=== PATIENT | male | born 1935 | race Caucasian/White ===

== ENCOUNTER 2017-10-19 08:33 | Outpatient (CLI) | payer MEDICARE, BC ==
[2017-10-19 09:20] LABS: CHOL/HDL RATIO 3.3 (<5.0); CHOLESTEROL 177 mg/dL; HDL CHOLESTEROL 53 mg/dL; LDL CHOLESTEROL,CALCULATED 113 mg/dL; LDL/HDL RATIO 2.1 (<3.6); VLDL CHOLESTEROL 11 mg/dL
== END 2017-10-19 08:34 | disposition home or self-care (01) ==
LOC: LAB 08:33
PROVIDERS: ATTEND Internal Medicine
DX: E78.00 Pure hypercholesterolemia, unspecified (principal)
CPT/HCPCS: 36415; 80061

== ENCOUNTER 2017-10-23 10:31 | Outpatient (CLI) | payer MEDICARE, BC ==
--- NOTE | 2017-10-28 16:21 | Ultrasound Report ---
DATE OF SERVICE: 10/23/2017 RIGHT LEG ARTERIAL DUPLEX: 10/23/2017 CLINICAL INDICATION: Pain in the right groin. TECHNIQUE: Real-time sonographic vascular imaging was performed by the hardwood floor finisher through the right lower extremity utilizing both color-flow and Doppler spectral analysis. Multiple contact center representative static images were saved for review. RIGHT SIDE SITE PSV WAVEFORM STEN PATIENT SUPPORT SPECIALIST 91 triphase PSFA 84 triphase MSFA 75 triphase DSFA 83 triphase PFA 68 triphase POP 40 triphase JANETT 59 triphase RADIOACTIVE WASTE DISPOSAL DISPATCHER 50 triphase PER 60 triphase DPA 61 triphase FINDINGS: Waveforms are triphasic. There is no evidence of a focal hemodynamically significant stenosis in the right leg. No pseudoaneurysm or arteriovenous fistula is appreciated. Irregularly irregular heart rhythm is incidentally noted, compatible with atrial fibrillation. IMPRESSION: NORMAL RIGHT LEG ARTERIAL DUPLEX. NO EVIDENCE OF PSEUDOANEURYSM OR ARTERIOVENOUS FISTULA FORMATION. TD: 10/23/2017 13:02 MTDHeidi
== END 2017-10-23 10:32 | disposition home or self-care (01) ==
LOC: DI 10:31
PROVIDERS: ATTEND Internal Medicine
DX: R10.31 Right lower quadrant pain (principal)

== ENCOUNTER 2017-12-21 09:34 | Outpatient (CLI) | payer MEDICARE, BC ==
[2017-12-21 10:23] LABS: CHOL/HDL RATIO 2.8 (<5.0); CHOLESTEROL 175 mg/dL; HDL CHOLESTEROL 62 mg/dL
[2017-12-21 10:47] LABS: LDL CHOLESTEROL,DIRECT 104 mg/dL; LDLD/HDL RATIO 1.7 (<3.6)
== END 2017-12-21 09:35 | disposition home or self-care (01) ==
LOC: LAB 09:34
PROVIDERS: ATTEND Internal Medicine
DX: E78.00 Pure hypercholesterolemia, unspecified (principal)
CPT/HCPCS: 36415; 80061; 83721

== ENCOUNTER 2022-06-20 12:28 | Outpatient (CLI) | payer MEDICARE, BC ==
[2022-06-20 18:40] LABS: BASOPHILS % (AUTO) 0.6 %; EOSINOPHILS % (AUTO) 0.6 %; HCT - HEMATOCRIT 41.6 % (42.0-52.0); HGB - HEMOGLOBIN 13.7 g/dL (14.0-18.0); LYMPHOCYTES # (AUTO) 0.9 10^3/uL (1.5-3.5); LYMPHOCYTES % (AUTO) 28.7 %; MEAN CORPUSCULAR HEMOGLOBIN 30.2 pg (27.0-31.0); MEAN CORPUSCULAR HGB CONC 32.9 g/dL (32.0-36.0); MEAN CORPUSCULAR VOLUME 91.6 fL (80.0-94.0); MEAN PLATELET VOLUME 11.1 fL (7.4-11.4); MONOCYTES # (AUTO) 0.3 10^3/uL (0.0-1.0); MONOCYTES % (AUTO) 9.2 %; NEUTROPHILS % (AUTO) 60.9 %; PLT - PLATELET COUNT 185 10^3/uL (130-450); RED BLOOD COUNT 4.54 10^6/uL (4.70-6.10); RED CELL DISTRIBUTION WIDTH 13.4 % (12.0-15.0); WHITE BLOOD COUNT 3.3 x10^3/uL (4.8-10.8)
[2022-06-20 19:05] LABS: ALBUMIN 4.3 g/dL (3.2-5.5); ALBUMIN/GLOBULIN RATIO 1.9 (1.0-2.2); BILIRUBIN,TOTAL 0.8 mg/dL (0.2-1.0); CALCIUM 9.5 mg/dL (8.5-10.3); CREATININE 0.8 mg/dL (0.6-1.2); POTASSIUM 4.2 mmol/L (3.5-5.0); TOTAL PROTEIN 6.6 g/dL (6.7-8.2)
== END 2022-06-20 23:59 | disposition home or self-care (01) ==
LOC: LAB.N 12:28
PROVIDERS: ATTEND Family Medicine
DX: R31.9 Hematuria, unspecified (principal)
CPT/HCPCS: 36415; 80053; 85025

== ENCOUNTER 2022-06-26 11:55 | Outpatient (CLI) | payer MEDICARE, BC ==
--- NOTE | 2022-06-26 16:32 | CT Report ---
PROCEDURE: Abdomen/Pelvis WO INDICATIONS: HEMATURIA TECHNIQUE: Noncontrast 5 mm thick sections acquired from the diaphragms to the symphysis. 5 mm coronal and sagi ttal reformats were then performed. For radiation dose reduction, the following was used: automated exposure control, adjustment of mA and/or kV according to patient size. COMPARISON: None. FINDINGS: Image quality: Excellent. ABDOMEN: Lung bases: Lung bases are clear. Heart size is normal. Solid organs: Liver and spleen are normal in size. Gallbladder is within normal limits. Pancreas i s normal in contours. Left adrenal thickening is seen. No discrete adrenal nodules. Kidneys are normal in size, without hydronephrosis or nephrolithiasis. 2.3 x 2.6 cm exophytic cyst in lateral cortex of mid pole right kidney is seen. No perinephric fat stranding or fluid. No hydrouret er. Peritoneum and bowel: Unenhanced bowel loops demonstrate normal wall thickness and caliber. No free fluid or air. Mild fecal stasis in the colon is seen. Colonic diverticulosis is noted without colon ic wall thickening or pericolonic fat stranding. Nodes and vessels: No retroperitoneal or mesenteric adenopathy by size criteria. Aorta and inferior vena cava are normal in caliber. Miscellaneous: No ventral hernias. PELVIS: Genitourinary: Enlarged prostate gland with mass effect on floor of urinary bladder is seen. Bladder wall thickness is normal. No discrete bladder wall mass. Miscellaneous: Borderline prominent right inguinal lymph node measures 1 cm in short axis diameter is seen series 3 image 108. No inguinal hernia. Bones: No suspicious bony lesions. No vertebral body compression fractures. 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 Moderate left hip joint osteoarthritic changes also seen. Degenerat alejandro disc disease is noted throughout lumbar spine. IMPRESSION: 1. No renal stones or hydronephrosis. No hydroureter. Right renal cyst as above. 2. No gross bladder wall abnormality. Enlarged prostate gland with mass effect on floor of urinary bl adder. 3. No bowel obstruction or abnormal bowel wall thickening. Mild constipation. Colonic diverticulosis without evidence of acute diverticulitis. 4. Left adrenal thickening, no definite adrenal nodule is seen. 5. Nonspecific borderline-enlarged right endolymph no. No other abdominal or pelvic lymphadenopathy i s seen. 6. Asymmetric severe right hip joint osteoarthritis. No acute fracture or dislocation. Reviewed by: Riccardo Sanches MD on 06/26/2022 4:30 PM PDT Approved by: Riccardo Sanches MD on 06/26/2022 4:30 PM PDT Station ID: [id number]
== END 2022-06-26 11:56 | disposition home or self-care (01) ==
LOC: DI 11:55
PROVIDERS: ATTEND Family Medicine
DX: N28.1 Cyst of kidney, acquired (principal); N40.0 Benign prostatic hyperplasia without lower urinary tract symptoms; R59.0 Localized enlarged lymph nodes; M16.11 Unilateral primary osteoarthritis, right hip; R31.9 Hematuria, unspecified

== ENCOUNTER 2023-03-02 15:21 | Emergency (ER) | payer MEDICARE, BC ==
--- NOTE | 2023-03-02 16:50 | Ultrasound Report ---
PROCEDURE: Duplex Ext Veins Left INDICATIONS: swelling for 2 weeks TECHNIQUE: Real-time imaging, as well as color and pulse Doppler interrogation, were performed of the lower extr emity deep veins from the inguinal ligament to the popliteal fossa. COMPARISON: None. FINDINGS: The deep veins are normally compressible, and free of intraluminal thrombus. Color and pu lse Doppler demonstrate normal phasic intraluminal flow. There is normal augmentation response to di stal compression maneuver. IMPRESSION: No evidence of acute DVT, left lower extremity. Reviewed by: Jonathan Dyer MD on 03/02/2023 4:49 PM PDT Approved by: Jonathan Dyer MD on 03/02/2023 4:49 PM PDT Station ID: [id number]
[2023-03-02 17:20] VITALS: BP 144/89
--- NOTE | 2023-03-02 17:24 | ED Physician Documentation ---
PD HPI LOWER EXT INJURY - Stated complaint Stated Complaint: LT LEG SWELL - Chief complaint Chief Complaint: Ext Problem - History obtained from History obtained from: Patient - Additional information Additional information: He got a new pair of boots about 2 weeks ago. There was a redundant flap of fabric in the left boot and he worked for 2 days and then developed a sore on the left ankle. Since then has had persistent swelling of that ankle. It is mildly painful. He was sent here from the walk-in clinic to rule out DVT. PD PAST MEDICAL HISTORY - Past Medical History Cardiovascular: Coronary artery disease, [place] Respiratory: None Endocrine/Autoimmune: None GI: None : None HEENT: None Psych: None Musculoskeletal: None Derm: None - Past Surgical History Past Surgical History: No Cardiovascular: Coronary stent, Angioplasty - Present Medications Home Medications: Ambulatory Orders Medication Instructions Recorded Confirmed Metoprolol Succinate 12.5 mg PO DAILY 11/08/15 07/16/16 Clopidogrel [Plavix] 75 mg PO ONCE 11/09/15 07/16/16 cephALEXin [Keflex] 500 mg PO Q6H #28 cap 03/02/23 - Allergies Allergies/Adverse Reactions: Allergies Allergy/AdvReac Type Severity Reaction Status Date / Time procaine HCl * Allergy Unknown Verified 07/16/16 22:45 [From Novocain] - Social History Does the pt smoke?: No Smoking Status: Never smoker Does the pt drink ETOH?: No Does the pt have substance abuse?: No - Immunizations Immunizations are current?: Yes Immunizations: TDAP >10years/unknown - POLST Patient has POLST: No PD ED PE NORMAL - Vitals Vital signs reviewed: Yes - General General: Alert and oriented X 3, No acute distress - Cardiac Cardiac: RRR - Respiratory Respiratory: No respiratory distress, Clear bilaterally - Extremities Extremities: Other (There is a small sore measuring only about 2 mm around on the lateral left ankle with mild surrounding redness and swelling. He has pitting edema, 2+ from the mid calf down. The right leg appears normal.) - Neuro Neuro: Alert and oriented X 3, Normal speech Results - Vitals Vitals: Vital Signs - 24 hr 03/02/23 03/02/23 15:25 17:18 Temperature 36.5 C Heart Rate 51 L 82 Respiratory 16 16 Rate Blood Pressure 132/81 H 144/89 H O2 Saturation 100 99 Oxygen O2 Source Room air - Rads (name of study) DVT ultrasound was reportedly negative. Relevant Findings:: Final report received PD Medical Decision Making - ED course ED course: Seems like a mild case of cellulitis related to his sore he has on his ankle from the boot. He is started on Keflex. Departure - Departure Disposition: Home, Self Care Clinical Impression: Cellulitis Qualifiers: Site of cellulitis: extremity Site of cellulitis of extremity: lower extremity Laterality: left Qualified Code(s): L03.116 - Cellulitis of left lower limb Condition: Good Record reviewed to determine appropriate education?: Yes Instructions: Cellulitis Dc Prescriptions: cephALEXin [Keflex] 500 mg PO Q6H #28 cap Comments: [facility] in [place]. Start t hem tonight. Return for new or worsening symptoms. Follow-up with your primary care physician, next available appointment. Elevate is much as possible.
== END 2023-03-02 17:28 | disposition home or self-care (01) ==
LOC: ED 15:21
DX: L03.116 Cellulitis of left lower limb (principal); I25.2 Old myocardial infarction; Z95.5 Presence of coronary angioplasty implant and graft
CPT/HCPCS: 99283; 99284

== ENCOUNTER 2023-07-28 15:47 | Emergency (ER) | payer MEDICARE, BC ==
[2023-07-28 16:02] VITALS: BP 125/74; O2SAT 99
--- NOTE | 2023-07-28 16:32 | XRAY Report ---
PROCEDURE: Ribs w/PA Chest RT INDICATIONS: Fall, limited ROM, pain TECHNIQUE: 2 views of the right ribs were acquired, along with a single view chest. COMPARISON: None. FINDINGS: Surgical changes and devices: None. Bones and chest wall: No fractures or dislocations. No suspicious bony lesions. Overlying soft tis sues appear unremarkable. Lungs and pleura: No pleural effusions or pneumothorax. Lungs appear clear. Mediastinum: Mediastinal contours appear normal. Heart size is normal. IMPRESSION: No displaced rib fracture or pneumothorax. Reviewed by: Riccardo Sanches MD on 07/28/2023 4:31 PM PDT Approved by: Riccardo Sanches MD on 07/28/2023 4:31 PM PDT Station ID: [id number]
--- NOTE | 2023-07-28 16:33 | XRAY Report ---
PROCEDURE: Clavicle RT INDICATIONS: Fall, pain with ROM TECHNIQUE: 2 views of the clavicle were acquired. COMPARISON: None. FINDINGS: Bones: No fractures or dislocations. Moderate to severe acromioclavicular joint and glenohumeral oneyda nt osteoarthritic changes are seen. No suspicious bony lesions. Soft tissues: No suspicious soft tissue calcifications or masses. IMPRESSION: No acute right clavicular fracture. 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 Reviewed by: Riccardo Sanches MD on 07/28/2023 4:32 PM PDT Approved by: Riccardo Sanches MD on 07/28/2023 4:32 PM PDT Station ID: [id number]
--- NOTE | 2023-07-28 17:52 | ED Physician Documentation ---
PD HPI MAJOR TRAUMA - Stated complaint Stated Complaint: FALL - Chief complaint Chief Complaint: Trauma Ch/Bk - History obtained from History obtained from: Patient - Additional information Additional information: Mechanical trip and fall hitting the back of a kitchen chair 2 weeks ago with persistent pain in the upper anterior right ribs and clavicle area. Worse last night while coughing. PD PAST MEDICAL HISTORY - Past Medical History Cardiovascular: Coronary artery disease, [place] Respiratory: None Endocrine/Autoimmune: None GI: None : None HEENT: None Psych: None Musculoskeletal: None Derm: None - Past Surgical History Past Surgical History: No Cardiovascular: Coronary stent, Angioplasty - Present Medications Home Medications: Ambulatory Orders Medication Instructions Recorded Confirmed Finasteride [Proscar] 5 mg PO DAILY 07/28/23 07/28/23 Metoprolol Succinate [Toprol Xl] 12.5 mg PO DAILY 07/28/23 07/28/23 Tamsulosin [Flomax] 0.4 mg PO DAILY 07/28/23 07/28/23 - Allergies Allergies/Adverse Reactions: Allergies Allergy/AdvReac Type Severity Reaction Status Date / Time procaine HCl * Allergy Unknown Verified 07/28/23 15:56 [From Novocain] - Social History Does the pt smoke?: No Smoking Status: Never smoker Does the pt drink ETOH?: No Does the pt have substance abuse?: No - Immunizations Immunizations are current?: Yes Immunizations: TDAP >10years/unknown - POLST Patient has POLST: No PD ED PE NORMAL - General General: Alert and oriented X 3, No acute distress - HEENT HEENT: PERRL, EOMI - Neck Neck: Supple, no meningeal sign, No bony TTP - Cardiac Cardiac: RRR, No murmur, Other (Mild tenderness of the proximal right clavicle and costochondral joints high up to the right chest wall. No bruising.) - Respiratory Respiratory: No respiratory distress, Clear bilaterally - Neuro Neuro: Alert and oriented X 3, Normal speech - Psych Psych: Normal mood, Normal affect Results - Vitals Vitals: Vital Signs - 24 hr 07/28/23 15:51 Temperature 36 C L Heart Rate 60 Respiratory 16 Rate Blood Pressure 125/74 O2 Saturation 99 Oxygen O2 Source Room air - Rads (name of study) X-rays right ribs and clavicle are negative for fracture. Relevant Findings:: Final report received, EMP independent interpretation of test PD Medical Decision Making - ED course ED course: 87-year-old gentleman with chest wall contusion, negative x-rays. Declined pain medication. Discussed expected course of healing and follow-up. Departure - Departure Disposition: 01 Home, Self Care Clinical Impression: Contusion of chest wall Qualifiers: Encounter type: initial encounter Laterality: right Qualified Code(s): S20.211A - Contusion of right front wall of thorax, initial encounter Condition: Good Record reviewed to determine appropriate education?: Yes Instructions: ED Contusion Rib Comments: Tylenol per package instructions for pain, you can also continue the conservative measures you have been doing. Return if worse. Expected will hurt for a while longer but recommend you follow-up with your primary care physician in 2 weeks if not slowly improving at least. Forms: PCP List Discharge Date/Time: 07/28/23 17:59
== END 2023-07-28 17:59 | disposition home or self-care (01) ==
LOC: ED 15:47
DX: S20.211A Contusion of right front wall of thorax, initial encounter (principal); W01.190A Fall on same level from slipping, tripping and stumbling with subsequent striking against furniture, initial encounter; Y92.000 Kitchen of unspecified non-institutional (private) residence as the place of occurrence of the external cause
CPT/HCPCS: 99283

== ENCOUNTER 2023-12-20 12:50 | Emergency (ER) | payer MEDICARE, BC ==
--- NOTE | 2023-12-20 16:54 | ED Physician Documentation ---
History of Present Illness - Stated complaint Stated Complaint: LEG/HIP PX - Chief complaint Chief Complaint: Ext Problem - History obtained from History obtained from: Patient, Family - Additonal information Additional information: 88-year-old gentleman with history of prostatic hypertrophy, and coronary disease with stenting presents with daughter. He spent 4 months in the [facility]. He states that for the last 3 years or so he has had progressive weakness and it was particular bad when he got off the plane a few nights ago. While in the [facility] he had several falls injuring the left shoulder, both hips, and ribs. When queried if his primary care physician knows about the progressive weakness he responds no but he does have an appointment this week with him. PD PAST MEDICAL HISTORY - Past Medical History Cardiovascular: Coronary artery disease, [place] Respiratory: None Endocrine/Autoimmune: None GI: None : None HEENT: None Psych: None Musculoskeletal: None Derm: None - Past Surgical History Past Surgical History: No Cardiovascular: Coronary stent, Angioplasty - Present Medications Home Medications: Ambulatory Orders Medication Instructions Recorded Confirmed Finasteride [Proscar] 5 mg PO DAILY 07/28/23 12/20/23 Metoprolol Succinate [Toprol Xl] 12.5 mg PO DAILY 07/28/23 12/20/23 Tamsulosin [Flomax] 0.4 mg PO DAILY 07/28/23 12/20/23 predniSONE [Deltasone] 20 mg PO DAILY #7 tab 12/20/23 - Allergies Allergies/Adverse Reactions: Allergies Allergy/AdvReac Type Severity Reaction Status Date / Time procaine HCl * Allergy Unknown Verified 07/28/23 15:56 [From Novocain] - Social History Does the pt smoke?: No Smoking Status: Never smoker Does the pt drink ETOH?: No Does the pt have substance abuse?: No - Immunizations Immunizations are current?: Yes Immunizations: TDAP >10years/unknown - POLST Patient has POLST: No PD ED PE NORMAL - Vitals Vital signs reviewed: Yes - General General: Alert and oriented X 3, No acute distress - HEENT HEENT: PERRL, EOMI - Neck Neck: Supple, no meningeal sign, No bony TTP - Cardiac Cardiac: RRR, No murmur - Respiratory Respiratory: No respiratory distress, Clear bilaterally - Abdomen Abdomen: Non tender - Derm Derm: Normal color, Warm and dry - Extremities Extremities: Other (Tender over the left shoulder with limited range of motion but no deformity. Also some tenderness of the left ribs and sternum. Both hips are mildly tender laterally but with painless external and internal rotation. He has good muscle mass.) - Neuro Neuro: Alert and oriented X 3, Normal speech Eye Opening: Spontaneous Motor: Obeys Commands Verbal: Oriented GCS Score: 15 Results - Vitals Vitals: Vital Signs - 24 hr 12/20/23 12/20/23 12/20/23 12:57 13:30 17:04 Temperature 36.0 C L Heart Rate 82 68 63 Respiratory 16 16 16 Rate Blood Pressure 104/64 128/82 H 132/62 H O2 Saturation 100 100 100 12/20/23 19:24 Temperature Heart Rate 82 Respiratory 16 Rate Blood Pressure 132/82 H O2 Saturation 98 Oxygen O2 Source Room air - Labs Labs: Laboratory Tests 12/20/23 12/20/23 12/20/23 17:00 17:00 17:00 WBC 5.2 RBC 3.89 L Hgb 10.8 L Hct 34.0 L MCV 87.4 MCH 27.8 MCHC 31.8 L RDW 16.4 H Plt Count 242 MPV 9.1 Neut # (Auto) 3.8 Lymph # (Auto) 0.9 L [place] # (Auto) 0.4 Eos # (Auto) 0.1 Baso # (Auto) 0.0 Absolute Nucleated RBC 0.00 Nucleated RBC % 0.0 ESR 45 H Sodium 136 Potassium 4.3 Chloride 103 Carbon Dioxide 27 Anion Gap 6.0 BUN 20 Creatinine 0.5 L Estimated GFR (MDRD) 158 Glucose 95 Calcium 9.1 Total Bilirubin 0.5 AST 26 ALT 14 Alkaline Phosphatase 403 H C-Reactive Protein Total Protein 6.9 Albumin 3.5 Globulin 3.4 Albumin/Globulin Ratio 1.0 Total PSA Urine Color Urine Clarity Urine pH Ur Specific Petty Urine Protein Urine Glucose (UA) Urine Ketones Urine Occult Blood Urine Nitrite Urine Bilirubin Urine Urobilinogen Ur Leukocyte Esterase Ur Microscopic Review Urine Culture Comments 12/20/23 12/20/23 12/20/23 17:00 18:01 18:25 WBC RBC Hgb Hct MCV MCH MCHC RDW Plt Count MPV Neut # (Auto) Lymph # (Auto) [place] # (Auto) Eos # (Auto) Baso # (Auto) Absolute Nucleated RBC Nucleated RBC % ESR Sodium Potassium Chloride Carbon Dioxide Anion Gap BUN Creatinine Estimated GFR (MDRD) Glucose Calcium Total Bilirubin AST ALT Alkaline Phosphatase C-Reactive Protein 12.0 H Total Protein Albumin Globulin Albumin/Globulin Ratio Total PSA 814.511 H Urine Color YELLOW Urine Clarity CLEAR Urine pH 5.5 Ur Specific Petty >=1.030 H Urine Protein NEGATIVE Urine Glucose (UA) NEGATIVE Urine Ketones NEGATIVE Urine Occult Blood NEGATIVE Urine Nitrite NEGATIVE Urine Bilirubin NEGATIVE Urine Urobilinogen 1 (NORMAL) Ur Leukocyte Esterase NEGATIVE Ur Microscopic Review NOT INDICATED Urine Culture Comments NOT INDICATED - Rads (name of study) Xrays" Relevant Findings:: Final report received, EMP independent interpretation of test (X-rays of the left shoulder demonstrate degenerative change, x-rays of the left ribs and chest were unremarkable. Bilateral hip x-rays show severe right and moderate left hip degenerative change.) PD Medical Decision Making - ED course ED course: He presents with ongoing joint pains that were much worse after a flight the other day. This is concerning for PMR and he is ESR and CRP are elevated so we will start steroids. He also has a lot of prostate symptoms but with a negative postvoid residual and negative urine here. His alkaline phosphatase was up which is worrisome for metastatic disease to the bones although I do not see any evidence of this on the current x-rays. His PSA is pending on discharge and He understandsthe need to follow-up with his PCP for consideration of this. He has an appointment on Thursday. Departure - Departure Disposition: Home, Self Care Clinical Impression: Weakness, Right hip pain, Left hip pain, Elevated erythrocyte sedimentation rate, Left shoulder pain, Frequent falls Condition: Good Record reviewed to determine appropriate education?: Yes Instructions: Understanding Polymyalgia Rheumatica, Treatment for Polymyalgia Rheumatica, ED Degenerative Joint Disease Prescriptions: predniSONE [Deltasone] 20 mg PO DAILY #7 tab Comments: You were seen today for diffuse joint aches, we did x-rays of the left shoulder, both hips, and ribs. The x-rays of the shoulder and ribs showed a lot of arthritis especially in the right hip. We still do not see anything wrong with your ribs per se. You do have elevated inflammatory markers and given your history of especially having bad pain after a long plane flight we would worry about what is called polymyalgia rheumatica. If you have that you should be getting a lot of relief from the steroids I am starting you on. Specifically your ESR was 45 and CRP was 12. Your urinalysis was normal and you do not seem to be retaining urine, your bladder scan only showed 97 mL and it, but given an elevated alkaline phosphatase I do worry about another bony problem he should be able to see what your PSA is and refer you appropriately if it is quite high, I would also discussed with him potentially a neurology referral given the ongoing weakness for the last several years and if the steroids are helping you can talk about how long you will continue them and a tapering schedule with him. Return if worse. Forms: PCP List Discharge Date/Time: 12/20/23 19:24
[2023-12-20 17:05] LABS: BASOPHILS % (AUTO) 0.2 %; EOSINOPHILS # (AUTO) 0.1 10^3/uL (0.0-0.7); HGB - HEMOGLOBIN 10.8 g/dL (14.0-18.0); LYMPHOCYTES # (AUTO) 0.9 10^3/uL (1.5-3.5); MEAN CORPUSCULAR HEMOGLOBIN 27.8 pg (27.0-31.0); MEAN CORPUSCULAR HGB CONC 31.8 g/dL (32.0-36.0); MEAN CORPUSCULAR VOLUME 87.4 fL (80.0-94.0); MEAN PLATELET VOLUME 9.1 fL (7.4-11.4); MONOCYTES # (AUTO) 0.4 10^3/uL (0.0-1.0); MONOCYTES % (AUTO) 7.3 %; NEUTROPHILS # (AUTO) 3.8 10^3/uL (1.5-6.6); NEUTROPHILS % (AUTO) 73.3 %; PLT - PLATELET COUNT 242 10^3/uL (130-450); RED BLOOD COUNT 3.89 10^6/uL (4.70-6.10); RED CELL DISTRIBUTION WIDTH 16.4 % (12.0-15.0); WHITE BLOOD COUNT 5.2 x10^3/uL (4.8-10.8)
[2023-12-20 17:36] LABS: ALBUMIN 3.5 g/dL (3.2-5.5); BILIRUBIN,TOTAL 0.5 mg/dL (0.2-1.0); CALCIUM 9.1 mg/dL (8.5-10.3); CREATININE 0.5 mg/dL (0.6-1.3); POTASSIUM 4.3 mmol/L (3.5-4.5); TOTAL PROTEIN 6.9 g/dL (6.4-8.9)
--- NOTE | 2023-12-20 18:03 | XRAY Report ---
PROCEDURE: Ribs w/PA Chest 3+V LT INDICATIONS: Rib inj TECHNIQUE: 2 views of the ribs were acquired, along with a single view chest. COMPARISON: 07/28/2023. Correlation is made with the accompanying imaging. FINDINGS: Surgical changes and devices: None. Bones and chest wall: No fractures or dislocations. No suspicious bony lesions. Age-appropriate de generative changes are seen. Overlying soft tissues appear unremarkable. Lungs and pleura: No pleural effusions or pneumothorax. Lungs appear clear. Mediastinum: Mediastinal contours appear normal. Heart size is normal. IMPRESSION: No displaced rib fracture or pneumothorax. Reviewed by: Isaac Raymundo MD on 12/20/2023 5:02 PM MAYA Approved by: Isaac Raymundo MD on 12/20/2023 5:02 PM MAYA Station ID: [id number]
--- NOTE | 2023-12-20 18:03 | XRAY Report ---
PROCEDURE: Shoulder 2+V LT INDICATIONS: shoulder inj TECHNIQUE: 3 views of the shoulder were acquired. COMPARISON: Correlation is made with the accompanying imaging. FINDINGS: Bones: No fractures or dislocations. No suspicious bony lesions. Visualized ribs appear intact. D egenerative changes are seen, with mild subacromial spurring and fragment osteophytes along the anter ior aspect of the glenohumeral joint. Soft tissues: No suspicious soft tissue calcifications. The visualized lungs are within normal limi ts. The aorta is prominent and tortuous. IMPRESSION: Degenerative changes are seen, without an acute bony abnormality identified by plain film. Reviewed by: Isaac Raymundo MD on 12/20/2023 5:01 PM MAYA Approved by: Isaac Raymundo MD on 12/20/2023 5:01 PM MAYA Station ID: [id number]
--- NOTE | 2023-12-20 18:05 | XRAY Report ---
PROCEDURE: Hips w/Pelvis 2-3V BL INDICATIONS: B hip pain TECHNIQUE: An AP view of the pelvis as well as frog leg views of each hip were acquired. COMPARISON: Correlation is made with the accompanying imaging. Correlation is also made with the eliecer or CT dated 06/26/2022. FINDINGS: Bones: No fractures or dislocations. No suspicious bony lesions. The visualized pelvic ring appear s intact. There is severe right hip degenerative change, with moderate left hip degenerative change. Soft tissues: No suspicious soft tissue calcifications or masses. IMPRESSION: No acute bony abnormality is seen on these plain films. There is severe right hip degenerative change and moderate left hip degenerative change. Reviewed by: Isaac Raymundo MD on 12/20/2023 5:04 PM MAYA Approved by: Isaac Raymundo MD on 12/20/2023 5:04 PM MAYA Station ID: [id number]
[2023-12-20 18:35] LABS: BILIRUBIN,URINE NEGATIVE (NEGATIVE); GLUCOSE, URINE (UA) NEGATIVE (NEGATIVE); KETONES,URINE (UA) NEGATIVE (NEGATIVE); LEUKOCYTE ESTERASE, URINE NEGATIVE (NEGATIVE); NITRITE,URINE NEGATIVE (NEGATIVE); OCCULT BLOOD,URINE NEGATIVE (NEGATIVE); PH,URINE 5.5 PH (5.0-7.5); PROTEIN,URINE NEGATIVE (NEGATIVE); UROBILINOGEN,URINE 1 (NORMAL) E.U./dL (NORMAL)
[2023-12-20 18:37] LABS: CLARITY,URINE CLEAR (CLEAR)
[2023-12-20] MEDS: predniSONE 20 MG TABLET PO STA (19:12)
[2023-12-20 19:33] VITALS: BP 132/82; O2SAT 98
== END 2023-12-20 19:24 | disposition home or self-care (01) ==
LOC: ED 12:50
DX: R53.1 Weakness (principal); M25.552 Pain in left hip; M25.551 Pain in right hip; R70.0 Elevated erythrocyte sedimentation rate; M25.512 Pain in left shoulder; R29.6 Repeated falls; I25.10 Atherosclerotic heart disease of native coronary artery without angina pectoris; N40.0 Benign prostatic hyperplasia without lower urinary tract symptoms; I25.2 Old myocardial infarction; Z98.61 Coronary angioplasty status; Z91.81 History of falling
CPT/HCPCS: 36415; 71101; 73030; 73521; 80053; 81003; 84153; 85025; 85651; 86140; 99284; J7512; 81001; 87086

== ENCOUNTER 2023-12-21 22:56 | Emergency (ER) | payer MEDICARE, BC ==
--- NOTE | 2023-12-22 00:40 | ED Physician Documentation ---
PD HPI LOWER EXT INJURY - Stated complaint Stated Complaint: BILAT LEG SWELLING - Chief complaint Chief Complaint: Ext Problem - History obtained from History obtained from: Patient - History of Present Illness PD HPI LOW EXT INJURY LOCATION: Left (more edema to left leg than right), Both Type of injury: No: Fall, Twist Where injury occurred: Home Timing - onset: Today, Last night Timing - details: Gradual onset, Still present (increased through day today. He noted onset of the edema after first dose of Prednisone Rx in ER yesterday. He states more swelling after dose today. No dyspnea, orthopnea, throat swelling, hives/itching.) Worsened by: Moving Associated symptoms: Swelling. No: Weakness, Numbness Similar symptoms before: Has not had sx before Recently seen: Emergency Dept (yesterday for diffuse arthralgias back, shoulders, extremities.) Review of Systems Constitutional: denies: Fever, Chills Cardiac: denies: Chest pain / pressure Respiratory: denies: Dyspnea, Cough PD PAST MEDICAL HISTORY - Past Medical History Past Medical History: Yes Cardiovascular: Coronary artery disease, [place] Respiratory: None Endocrine/Autoimmune: None GI: None : None HEENT: None Psych: None Musculoskeletal: None Derm: None - Past Surgical History Past Surgical History: Yes Cardiovascular: Coronary stent, Angioplasty - Present Medications Home Medications: Ambulatory Orders Medication Instructions Recorded Confirmed Finasteride [Proscar] 5 mg PO DAILY 07/28/23 12/21/23 Metoprolol Succinate [Toprol Xl] 12.5 mg PO DAILY 07/28/23 12/21/23 Tamsulosin [Flomax] 0.4 mg PO DAILY 07/28/23 12/21/23 predniSONE [Deltasone] 20 mg PO DAILY #7 tab 12/20/23 12/21/23 - Allergies Allergies/Adverse Reactions: Allergies Allergy/AdvReac Type Severity Reaction Status Date / Time procaine HCl * Allergy Unknown Verified 12/21/23 23:13 [From Novocain] - Social History Does the pt smoke?: No Smoking Status: Never smoker Does the pt drink ETOH?: No Does the pt have substance abuse?: No - Immunizations Immunizations are current?: Yes Immunizations: TDAP >10years/unknown - POLST Patient has POLST: No PD ED PE NORMAL - Vitals Vital signs reviewed: Yes - General General: Alert and oriented X 3, Well developed/nourished - Neck Neck: Supple, no meningeal sign, No adenopathy - Cardiac Cardiac: RRR, No murmur - Respiratory Respiratory: No respiratory distress, Clear bilaterally - Abdomen Abdomen: Soft, Non tender - Derm Derm: Normal color, Warm and dry - Extremities Extremities: Other (edema with tenderness left leg more with 1+ edema up to lambert. Some on right leg but less than right. Some calf tender in both. ) - Neuro Neuro: Alert and oriented X 3, No motor deficit, No sensory deficit Results - Vitals Vitals: Vital Signs - 24 hr 12/21/23 12/22/23 23:06 01:55 Temperature 36.7 C Heart Rate 68 72 Respiratory 16 18 Rate Blood Pressure 109/68 112/64 O2 Saturation 100 97 Oxygen O2 Source Room air PD Medical Decision Making - ED course Complexity details: reviewed results (just yesterday had chemistry with creatinine 0.5. clear chest xray. Good vitals. Had not had notble edema in legs as yet. Onset after took Prednisone. Had arrived by plane from [facility] 4 days prior. ), considered differential, d/w patient Reviewed Lab Results: I looked at the labs, imaging and provider note from yesterday. No mention of leg edema nor pain in pt complaint nor provider exam. So has developed since, as pt has said. Could be side effect of prednisone, though timing would raise concern of DVT just coincident with taking the Prednisone. US is not available at this time of night. Discussed with pt to start temporize treatment for 24 hours with IM dose Lovenox and return for US. Departure - Departure Disposition: 01 Home, Self Care Clinical Impression: Leg edema, History of recent air travel, Acute joint pain, Adverse effect of prednisone Condition: Stable Record reviewed to determine appropriate education?: Yes Follow-Up: Mark Anthony Hartley MD [Primary Care Provider] - Comments: For the swelling in your legs, I would use some wrapping such as Mehran wrap and also elevate and rest your legs often tomorrow. You were given a dose of a water pill to help with some of the swelling. It does not necessarily have to be that you are fluid overloaded per se but the prednisone can cause "leakiness" of the capillary blood vessels and swelling can show up most commonly in the lower legs (mainly due to a gravity affect). Stop the prednisone. See your primary care provider on Thursday as planned. Alternative explanation for the swelling though, given your recent air travel several days ago, would be concern for blood clots through the veins in the legs. We do not have ultrasound available at this time of night. Return for ultrasound to evaluate for possible blood clots. You were given a shot of a blood thinner which will last about a day or switch so as an effect for treating it now if that ends up being the cause. Forms: PCP List Discharge Date/Time: 12/22/23 02:02
[2023-12-22] MEDS: hydroCHLOROthiazide 25 MG TABLET PO STA (01:39)
[2023-12-22] MEDS: ENOXAPARIN 100 MG/ML SYRINGE SUBQ STA (01:42)
[2023-12-22 02:00] VITALS: BP 112/64; O2SAT 97
== END 2023-12-22 02:02 | disposition home or self-care (01) ==
LOC: ED 22:56
DX: R60.0 Localized edema (principal); M25.50 Pain in unspecified joint; T38.0X5A Adverse effect of glucocorticoids and synthetic analogues, initial encounter; I25.10 Atherosclerotic heart disease of native coronary artery without angina pectoris; Z98.61 Coronary angioplasty status; I25.2 Old myocardial infarction
CPT/HCPCS: 96372; 99283; 99284; A9270; J1650

== ENCOUNTER 2023-12-25 14:23 | Outpatient (CLI) | payer MEDICARE, BC | END 2023-12-25 14:24 | disposition home or self-care (01) | LOC: LAB 14:23 | PROVIDERS: ATTEND Urology | DX: R97.20 Elevated prostate specific antigen [PSA] (principal) | CPT/HCPCS: 36415; 84153 ==

== ENCOUNTER 2023-12-30 17:04 | Emergency (ER) | payer MEDICARE, BC ==
[2023-12-30 17:30] VITALS: BP 108/54; O2SAT 99
--- NOTE | 2023-12-30 18:55 | ED Physician Documentation ---
History of Present Illness - Stated complaint Stated Complaint: BILAT LEG PX - Chief complaint Chief Complaint: Ext Problem - History obtained from History obtained from: Patient - Additonal information Additional information: 88-year-old gentleman with recent diagnosis of likely prostate cancer by PSA was seen by my partner about 10 days ago for lower extremity swelling. He was given a dose of Lovenox and advised to return the next day for ultrasonography. He could not due to transportation issues and now returns requesting the ultrasound as he is still having some leg swelling on the left especially. PD PAST MEDICAL HISTORY - Past Medical History Cardiovascular: Coronary artery disease, [place] Respiratory: None Endocrine/Autoimmune: None GI: None : None HEENT: None Psych: None Musculoskeletal: None Derm: None - Past Surgical History Past Surgical History: Yes Cardiovascular: Coronary stent, Angioplasty - Present Medications Home Medications: Ambulatory Orders Medication Instructions Recorded Confirmed Finasteride [Proscar] 5 mg PO DAILY 07/28/23 12/30/23 Metoprolol Succinate [Toprol Xl] 12.5 mg PO DAILY 07/28/23 12/30/23 Tamsulosin [Flomax] 0.4 mg PO DAILY 07/28/23 12/30/23 Levothyroxine [Synthroid] 1 tab PO DAILY 12/30/23 12/30/23 Rivaroxaban [Xarelto] 10 mg PO DAILY #30 tablet 12/30/23 - Allergies Allergies/Adverse Reactions: Allergies Allergy/AdvReac Type Severity Reaction Status Date / Time procaine HCl * Allergy Unknown Verified 12/21/23 23:13 [From Novocain] prednisone AdvReac Edema Verified 12/30/23 17:19 - Social History Does the pt smoke?: No Smoking Status: Never smoker Does the pt drink ETOH?: No Does the pt have substance abuse?: No - Immunizations Immunizations are current?: Yes Immunizations: TDAP >10years/unknown - POLST Patient has POLST: No PD ED PE NORMAL - Vitals Vital signs reviewed: Yes - General General: Alert and oriented X 3, No acute distress - Extremities Extremities: Other (Modest swelling of the left calf, no tenderness.) - Neuro Neuro: Alert and oriented X 3, Normal speech Results - Vitals Vitals: Vital Signs - 24 hr 12/30/23 17:15 Temperature 36.5 C Heart Rate 71 Respiratory 16 Rate Blood Pressure 108/54 L O2 Saturation 99 Oxygen O2 Source Room air PD Medical Decision Making - ED course ED course: He has a superficial vein thrombosis and I am concerned that he may already have a metastatic cancer, specifically prostate that has not yet definitively been diagnosed. As such I think he is at increased risk for propagation of this clot and would like to put him on prophylactic anticoagulation at least. He has a prostate biopsy scheduled for January 11 and I discussed the case by phone with Dr. Colbert who says it is fine to start a DOAC stopping it a few days before the procedure. Departure - Departure Disposition: Home, Self Care Clinical Impression: Superficial thrombophlebitis of left leg Condition: Good Record reviewed to determine appropriate education?: Yes Instructions: ED Phlebitis Superficial Prescriptions: Rivaroxaban [Xarelto] 10 mg PO DAILY #30 tablet Comments: You have a small clot in the superficial veins, not a deep vein clot. I am starting on Xarelto, blood thinner for this and discussed this with your urologist. You should stop it on the of this month in preparation for the biopsy of your prostate. He will likely like to restart it after the biopsy. If you develop significant bleeding please return for reevaluation and stop the Xarelto at that time as well.
[2023-12-30] MEDS: APIXABAN 5 MG TABLET PO STA (19:14)
--- NOTE | 2023-12-30 19:27 | Ultrasound Report ---
PROCEDURE: Duplex Ext Veins Bilateral INDICATIONS: Walter Carty MD TECHNIQUE: Real-time imaging, as well as color and pulse Doppler interrogation, were performed of the deep veins of both legs from the inguinal ligament to the popliteal fossa. Attempted visualization of the calf veins was performed. COMPARISON: None. FINDINGS: The deep veins are normally compressible, and free of intraluminal thrombus. Color and pu lse Doppler demonstrate normal phasic intravascular flow. There is normal augmentation response to d istal compression maneuver. Superficial thrombosis of the greater saphenous vein, without extension into the CFV junction. Bilateral Martinez's cyst. IMPRESSION: No deep venous thrombosis of the visualized lower extremities. Superficial thrombosis of the greater saphenous vein within the thigh, without extension into the CFV junction. Reviewed by: José Issa MD on 12/30/2023 7:25 PM PDT Approved by: José Issa MD on 12/30/2023 7:25 PM PDT Station ID: [id number]
== END 2023-12-30 19:20 | disposition home or self-care (01) ==
LOC: ED 17:04
DX: I80.02 Phlebitis and thrombophlebitis of superficial vessels of left lower extremity (principal); Z79.899 Other long term (current) drug therapy; I25.10 Atherosclerotic heart disease of native coronary artery without angina pectoris; Z98.61 Coronary angioplasty status
CPT/HCPCS: 93970; 99284; A9270